=== PATIENT | female | born 1985 | race Caucasian/White ===

== ENCOUNTER 2017-06-09 18:45 | Observation (INO) | payer BC ==
[~2017-06-09] VITALS: Ht 157.5 cm; Wt 117.9 kg
[2017-06-09 20:38] LABS: HEMATOCRIT 32.5 % (36-48); MEAN CORPUSCULAR HGB CONC 36.5 g/dL (32.0-36.0); MEAN CORPUSCULAR VOLUME 93.1 fL (79-99); NUCLEATED RED BLOOD CELLS 0.1 % (0.0-0.19); PLATELET COUNT (AUTO) 223 K/uL (130-400); RED BLOOD CELL COUNT(AUTO) 3.49 MIL/uL (4.00-5.50); RED CELL DISTRIBUTION WIDTH 13.9 % (11.0-15.5); WHITE BLOOD COUNT (AUTO) 9.5 K/uL (4.8-10.8)
[2017-06-09 20:51] LABS: INR 0.85 (0.85-1.15); PARTIAL THROMBOPLASTIN TIME 24.1 SEC (26.3-35.5)
[2017-06-10] MEDS: LACTATED RINGERS 1000ML 1,000 ML IV SCH (07:39)
[2017-06-10] MEDS ORDERED: ACETAMINOPHEN EXTRA STRENGTH 500 MG TABLET PO PRN (08:30)
[2017-06-11] MEDS ORDERED: ACETAMINOPHEN 325 MG TAB PO ONE (00:15)
[2017-06-11] MEDS: LACTATED RINGERS 1000ML 1,000 ML IV SCH ×2 (00:15→05:23)
== END 2017-06-11 10:20 | disposition home or self-care (01) ==
LOC: EDH 18:45 → LDH 19:21 → WSH 06-10 11:15
DX: O62.8 Other abnormalities of forces of labor (principal); S80.211A Abrasion, right knee, initial encounter; S80.212A Abrasion, left knee, initial encounter; S60.512A Abrasion of left hand, initial encounter; W01.0XXA Fall on same level from slipping, tripping and stumbling without subsequent striking against object, initial encounter; Y93.89 Activity, other specified; Y92.511 Restaurant or cafe as the place of occurrence of the external cause; Y99.8 Other external cause status; Z3A.38 38 weeks gestation of pregnancy
CPT/HCPCS: 36415; 76805; 76819; 85027; 85378; 85384; 85610; 85730; 86850; 86900; 86901; 96360; 96361 ×3; 99285; G0378 ×39; J7120 ×2

== ENCOUNTER 2017-06-30 14:28 | Inpatient (IN) | payer BC ==
[~2017-06-30] VITALS: Ht 157.5 cm; Wt 120.2 kg
[2017-06-30] MEDS: LACTATED RINGERS 1000ML 1,000 ML IV PRN ×2 (15:22→20:01)
[2017-06-30 15:28] LABS: BASOPHILS % (AUTO) 0.4 % (0.0-5.0); EOSINOPHILS % (AUTO) 0.5 % (0.0-8.0); HEMATOCRIT 35.8 % (36-48); LYMPHOCYTES % (AUTO) 17.2 % (21.0-51.0); MEAN CORPUSCULAR HEMOGLOBIN 33.1 pg (27.0-33.0); MEAN CORPUSCULAR HGB CONC 35.2 g/dL (32.0-36.0); MEAN CORPUSCULAR VOLUME 94.1 fL (79-99); NEUTROPHILS % (AUTO) 74.9 % (40.0-77.0); PLATELET COUNT (AUTO) 224 K/uL (130-400); RED CELL DISTRIBUTION WIDTH 14.9 % (11.0-15.5); WHITE BLOOD COUNT (AUTO) 10.1 K/uL (4.8-10.8)
[2017-06-30 15:42] LABS: CREATININE 0.8 mg/dL (0.5-1.5); POTASSIUM 4.2 mmol/L (3.5-5.1)
[2017-06-30 15:47] LABS: ALBUMIN 2.6 g/dL (3.5-5.0); BILIRUBIN,TOTAL 0.2 mg/dL (0.2-1.0); TOTAL PROTEIN, SERUM 6.8 g/dL (6.0-8.3); URIC ACID 5.9 mg/dL (2.6-7.2)
[2017-06-30 15:51] LABS: APPEARANCE,URINE Clear (CLEAR); BILIRUBIN,URINE Negative (NEGATIVE); COLOR,URINE Yellow (YELLOW); GLUCOSE, URINE (UA) Negative (NEGATIVE); KETONES,URINE Negative (NEGATIVE); LEUKOCYTE ESTERASE ,URINE Negative (NEGATIVE); NITRATE,URINE Negative (NEGATIVE); OCCULT BLOOD,URINE Negative (NEGATIVE); PROTEIN,URINE POS 2+ (NEGATIVE); UROBILINOGEN,URINE 0.2 mg/dL (0.2-1.0)
[2017-06-30 15:57] LABS: INR 0.84 (0.85-1.15); PARTIAL THROMBOPLASTIN TIME 23.6 SEC (26.3-35.5); PROTHROMBIN TIME 8.8 SEC (9.6-11.6)
[2017-06-30 16:51] LABS: BACTERIA,URINE Rare /HPF (None Seen); RBC,URINE None Seen /HPF (0-1); WBC,URINE 0-1 /HPF (0-1)
[2017-06-30] MEDS ORDERED: TERBUTALINE SULFATE VIAL 1MG/ML SQ ONE (17:30)
[2017-07-01] MEDS: LACTATED RINGERS 1000ML 1,000 ML IV PRN (04:20)
[2017-07-01] MEDS ORDERED: CLINDAMYCIN 900 MG/D5% WATER 50 ML IV ONE (08:25)
[2017-07-01] MEDS ORDERED: FENTANYL CITRATE PF 50 MCG/1 ML 2ML VIAL ONE (09:54)
[2017-07-01] MEDS ORDERED: CLINDAMYCIN 900 MG/D5% WATER 50 ML IV PRN (10:00)
[2017-07-01] MEDS ORDERED: DEXAMETHASONE SOD PHOSPHATE 10MG/ML 1ML VIAL ONE (10:42)
[2017-07-01] MEDS ORDERED: OXYTOCIN 10 USP UNITS/ML ONE ×2 (10:42→11:21)
[2017-07-01] MEDS ORDERED: METOCLOPRAMIDE 10 MG/2 ML VIAL ONE (10:42)
[2017-07-01] MEDS ORDERED: PHENYLEPHRINE HCL 10 MG/ML 1ML VIAL IV ONE (10:42)
[2017-07-01] MEDS ORDERED: OXYTOCIN-LR 20 UNITS/1000 ML 1,000 ML IV PRN (11:14)
[2017-07-01] MEDS ORDERED: SODIUM CHLORIDE 0.9% 10 ML VIAL IVP PRN (11:15)
[2017-07-01] MEDS ORDERED: CETI10CA5 PO (11:34)
[2017-07-01] MEDS: PROMETHAZINE HCL 25 MG/ML 1ML AMPULE IM PRN ×3 (13:41→21:30)
[2017-07-01] MEDS: MEPERIDINE-PF 75 MG/ML SYG IM PRN ×3 (13:41→21:31)
[2017-07-01 14:25] VITALS: BP 130/72
[2017-07-01 15:38] VITALS: BP_SYST 141; BP_DIAS 48; BP_DIAS 68
[2017-07-01] MEDS ORDERED: HYDROCODONE/ACETAMINOPHEN 5/325 MG TAB ONE (15:38)
[2017-07-01] MEDS ORDERED: ONDANSETRON HCL 4 MG/2 ML 8 MG in SODIUM CHLORIDE 0.9% 50 ML IVP NR (16:00)
[2017-07-01] MEDS ORDERED: EPHEDRINE SULFATE 50 MG/ML AMPULE IVP PRN (16:00)
[2017-07-01] MEDS ORDERED: ROPIVACAINE 0.2%200ML EPIDURAL 200 ML EP SCH (16:00)
[2017-07-01] MEDS ORDERED: PROMETHAZINE HCL 25 MG/ML 1ML AMPULE IM PRN (16:00)
[2017-07-01] MEDS ORDERED: ONDANSETRON HCL 4 MG/2 ML VIAL IVP PRN ×2 (16:00)
[2017-07-01] MEDS ORDERED: DiphenhydrAMINE HCL 50 MG/ML VIAL IVP PRN (16:00)
[2017-07-01] MEDS ORDERED: MORPHINE SULFATE 2 MG/ML 1ML SYG IVP PRN (16:00)
[2017-07-01] MEDS ORDERED: HYDROCODONE/ACETAMINOPHEN 5/325 MG TAB PO PRN (16:00)
[2017-07-01] MEDS ORDERED: NALOXONE HCL 0.4 MG/1 ML ML IVP PRN ×2 (16:00)
[2017-07-01] MEDS ORDERED: METOCLOPRAMIDE 10 MG/2 ML VIAL IVP PRN (16:00)
[2017-07-01] MEDS: DEXTROSE 5 %-0.45 % NACL 1,000 ML IV PRN (17:32)
[2017-07-01 20:31] VITALS: BP 142/77
[2017-07-02] VITALS (7 sets, daily range): BP systolic 118–136; BP diastolic 60–93
[2017-07-02] MEDS: DEXTROSE 5 %-0.45 % NACL 1,000 ML IV PRN ×2 (00:19→07:08)
[2017-07-02] MEDS: HYDROCODONE/ACETAMINOPHEN 5/325 MG TAB PO PRN ×2 (00:35→08:27)
[2017-07-02] MEDS: PROMETHAZINE HCL 25 MG/ML 1ML AMPULE IM PRN (05:10)
[2017-07-02] MEDS: MEPERIDINE-PF 75 MG/ML SYG IM PRN (05:12)
[2017-07-02 06:23] LABS: HEPATITIS Bs ANTIGEN SCREEN P Negative (Negative)
[2017-07-02 06:53] LABS: HEMATOCRIT 29.7 % (36-48); MEAN CORPUSCULAR HEMOGLOBIN 32.7 pg (27.0-33.0); MEAN CORPUSCULAR HGB CONC 34.5 g/dL (32.0-36.0); PLATELET COUNT (AUTO) 192 K/uL (130-400); RED BLOOD CELL COUNT(AUTO) 3.12 MIL/uL (4.00-5.50); RED CELL DISTRIBUTION WIDTH 14.9 % (11.0-15.5); WHITE BLOOD COUNT (AUTO) 13.5 K/uL (4.8-10.8)
[2017-07-02] MEDS: CETIRIZINE HCL 5 MG TABLET PO SCH (08:27)
[2017-07-02] MEDS: DIPH,PERTUSS(ACELL),TET VAC/PF 0.5 ML VIAL IM SCH (08:36)
[2017-07-02] MEDS ORDERED: BISACODYL 10 MG SUPP.RECT RC PRN (11:45)
[2017-07-02] MEDS ORDERED: DIPH,PERTUSS(ACELL),TET VAC/PF 0.5 ML VIAL IM SCH (11:45)
[2017-07-02] MEDS ORDERED: IBUPROFEN 800 MG TAB PO SCH (11:45)
[2017-07-02] MEDS ORDERED: DIPHENHYDRAMINE HCL 25 MG CAPSULE PO PRN (11:45)
[2017-07-02] MEDS ORDERED: LANOLIN 30GM OINTMENT TP PRN (11:45)
[2017-07-02] MEDS ORDERED: MEASLES/MUMPS/RUBELLA VACCINE, LIVE 0.5 ML/VIAL SQ SCH (11:45)
[2017-07-02] MEDS: IBUPROFEN 800 MG TAB PO SCH ×2 (12:10→19:51)
[2017-07-02] MEDS: ACETAMINOPHEN-CODEINE 300/30MG TAB PO PRN (21:23)
[2017-07-02] MEDS: DOCUSATE SODIUM 100 MG CAP PO SCH (22:36)
[2017-07-02] MEDS: SIMETHICONE 80 MG TAB.CHEW PO SCH (22:36)
[2017-07-03 03:40] VITALS: BP 109/55
[2017-07-03] MEDS: IBUPROFEN 800 MG TAB PO SCH ×2 (03:43→11:15)
[2017-07-03 07:30] VITALS: BP 122/70
[2017-07-03] MEDS: DIPH,PERTUSS(ACELL),TET VAC/PF 0.5 ML VIAL IM SCH (08:30)
[2017-07-03] MEDS: CETIRIZINE HCL 5 MG TABLET PO SCH (09:00)
[2017-07-03] MEDS: SIMETHICONE 80 MG TAB.CHEW PO SCH (09:25)
[2017-07-03] MEDS: DOCUSATE SODIUM 100 MG CAP PO SCH (09:25)
[2017-07-03] MEDS: ACETAMINOPHEN-CODEINE 300/30MG TAB PO PRN (11:12)
[2017-07-03 12:38] VITALS: BP 132/77
== END 2017-07-03 12:55 | disposition home or self-care (01) | DRG 765 ==
LOC: LDH 14:28 → OBSVTOIN 14:28 → WSH 07-01 14:25
PROVIDERS: ADMIT Specialist; ATTEND Specialist
PROC: 10D00Z1 Extraction of Products of Conception, Low, Open Approach (ICD-10-PCS; principal; 2017-07-01 10:00)
PROC: 3E0234Z Introduction of Serum, Toxoid and Vaccine into Muscle, Percutaneous Approach (ICD-10-PCS; 2017-07-03)
DX: O14.04 Mild to moderate pre-eclampsia, complicating childbirth (principal); D62 Acute posthemorrhagic anemia; O36.63X0 Maternal care for excessive fetal growth, third trimester, not applicable or unspecified; O48.0 Post-term pregnancy; O69.81X0 Labor and delivery complicated by cord around neck, without compression, not applicable or unspecified; Z37.0 Single live birth; Z3A.40 40 weeks gestation of pregnancy; Z23 Encounter for immunization
CPT/HCPCS: 36415; 59510; 80053; 81001; 84550; 85025; 85027; 85384; 85610; 85730; 86592; 86850; 86900; 86901; 87340; 90715; A4344; A4606; J1100; J2175; J2370; J2550; J2590; J2765; J3010; J3490; J7120